=== PATIENT | female | born 1965 | race Caucasian/White ===

== ENCOUNTER → 2018-04-18 | Outpatient (CLI) | payer OTHER | LOC: M RAD 14:54 | DX: M51.36 Other intervertebral disc degeneration, lumbar region (principal) | CPT/HCPCS: 72110 ==

== ENCOUNTER → 2019-02-02 | Outpatient (REF) | payer OTHER, MEDICAID ==
[2019-02-02 13:24] LABS: AMORPHOUS SEDIMENT MODERATE (NEGATIVE); APPEARANCE, URINE TURBID (CLEAR); BACTERIA, URINE AUTO NEGATIVE (NEGATIVE); BILIRUBIN, URINE AUTO NEGATIVE (NEGATIVE); BLOOD, URINE BLOOD NEGATIVE (NEGATIVE); COLOR, URINE YELLOW (YELLOW); GLUCOSE, URINE (UA) AUTO NEGATIVE (NEGATIVE); KETONE, URINE AUTO NEGATIVE (NEGATIVE); LEUKOCYTE ESTERASE, URINE AUTO 2+ (NEGATIVE); NITRITE, URINE AUTO NEGATIVE (NEGATIVE); PROTEIN, URINE AUTO NEGATIVE (NEGATIVE); RBC, URINE AUTO 0 /HPF (0-3); SPECIFIC GRAVITY URINE AUTO 1.027 (1.002-1.035); SQUAMOUS EPITHELIAL CELL UR AU 0 /HPF (0-6); UROBILINOGEN, URINE AUTO 0.2 mg/dL (0.0-2.0); WBC, URINE AUTO 0 /HPF (0-3)
[2019-02-02 13:36] LABS: BASO # 0.1 10^3/uL (0.0-0.2); BASO % 1.4 % (0.0-1.0); EOS # 0.1 10^3/uL (0.0-0.50); EOS % 2.4 % (0.0-3.0); HEMATOCRIT 39.4 % (36.0-47.0); LYMPH # 1.5 10^3/uL (1.5-4.5); LYMPH % 30.4 % (24.0-44.0); MEAN CORPUSCULAR HEMOGLOBIN 28.6 pg (27.0-33.0); MEAN CORPUSCULAR VOLUME 86.6 fl (80.0-96.0); MONO # 0.4 10^3/uL (0.0-0.8); MONO % 8.5 % (0.0-5.0); NEUTROPHILS # 2.8 10^3/uL (1.8-7.7); NEUTROPHILS % 57.1 % (36.0-66.0); PLATELET COUNT, AUTOMATED 352 10^3/uL (150-450); RED BLOOD COUNT 4.55 10^6/uL (4.00-5.40); WHITE BLOOD COUNT 4.9 10^3/uL (4.0-10.0)
[2019-02-02 13:44] LABS: ALBUMIN 3.5 GM/DL (3.2-5.2); ALT/SGPT 15 U/L (12-78); BILIRUBIN,TOTAL 0.6 MG/DL (0.2-1.0); BLOOD UREA NITROGEN 25 MG/DL (7-18); CALCIUM LEVEL 9.2 MG/DL (8.5-10.1); CARBON DIOXIDE LEVEL 26 MEQ/L (21-32); CHLORIDE LEVEL 110 MEQ/L (98-107); CHOLESTEROL LEVEL 188 MG/DL (<200); CHOLESTEROL RISK RATIO 4.585 (<5); FREE T4 0.77 NG/DL (0.76-1.46); GLOMERULAR FILTRATION RATE > 60.0 (>51); GLUCOSE, FASTING 87 MG/DL (70-100); HDL CHOLESTEROL 41 MG/DL (>40); LDL CHOLESTEROL 107 MG/DL (<100); NON-HDL-C 147 MG/DL; POTASSIUM SERUM 4.4 MEQ/L (3.5-5.1); SODIUM LEVEL 142 MEQ/L (136-145); TOTAL PROTEIN 6.8 GM/DL (6.4-8.2); TRIGLYCERIDES LEVEL 202 MG/DL (<150)
[2019-02-04 00:08] LABS: Lyme Disease IgG/IgM Antibodie <0.91 ISR (0.00-0.90); Lyme Disease IgM Ab Quantitati <0.80 index (0.00-0.79)
== END ==
LOC: M LAB REF 13:00
PROVIDERS: ATTEND Family Medicine
DX: Z13.228 Encounter for screening for other metabolic disorders (principal)

== ENCOUNTER → 2019-12-04 | Outpatient (REF) | payer OTHER, MEDICAID ==
[2019-12-04 17:57] LABS: APPEARANCE, URINE CLEAR (CLEAR); BACTERIA, URINE AUTO NEGATIVE (NEGATIVE); BILIRUBIN, URINE AUTO NEGATIVE (NEGATIVE); BLOOD, URINE BLOOD 1+ (NEGATIVE); COLOR, URINE YELLOW (YELLOW); GLUCOSE, URINE (UA) AUTO NEGATIVE (NEGATIVE); KETONE, URINE AUTO NEGATIVE (NEGATIVE); LEUKOCYTE ESTERASE, URINE AUTO NEGATIVE (NEGATIVE); NITRITE, URINE AUTO NEGATIVE (NEGATIVE); PROTEIN, URINE AUTO NEGATIVE (NEGATIVE); RBC, URINE AUTO 1 /HPF (0-3); SPECIFIC GRAVITY URINE AUTO 1.013 (1.002-1.035); SQUAMOUS EPITHELIAL CELL UR AU 1 /HPF (0-6); UROBILINOGEN, URINE AUTO 0.2 mg/dL (0.0-2.0); WBC, URINE AUTO 2 /HPF (0-3)
== END ==
LOC: M LAB REF 16:15
PROVIDERS: ATTEND Nurse Practitioner Family
DX: R30.0 Dysuria (principal)

== ENCOUNTER → 2019-12-14 | Outpatient (REF) | payer OTHER, MEDICAID ==
[2019-12-14 17:40] LABS: BASO # 0.1 10^3/uL (0.0-0.2); BASO % 1.3 % (0.0-1.0); EOS # 0.2 10^3/uL (0.0-0.5); EOS % 2.3 % (0.0-3.0); HEMATOCRIT 39.9 % (36.0-47.0); HEMOGLOBIN 13.3 g/dl (12.0-15.5); LYMPH # 2.4 10^3/uL (1.5-5.0); LYMPH % 35.1 % (24.0-44.0); MEAN CORPUSCULAR HEMOGLOBIN 29.4 pg (27.0-33.0); MEAN CORPUSCULAR HGB CONC 33.3 g/dl (32.0-36.5); MEAN CORPUSCULAR VOLUME 88.3 fl (80.0-96.0); MONO # 0.5 10^3/uL (0.0-0.8); MONO % 7.8 % (0.0-5.0); NEUTROPHILS # 3.3 10^3/uL (1.5-8.5); NEUTROPHILS % 48.8 % (36.0-66.0); PLATELET COUNT, AUTOMATED 335 10^3/uL (150-450); RED BLOOD COUNT 4.52 10^6/uL (4.00-5.40); WHITE BLOOD COUNT 6.8 10^3/uL (4.0-10.0)
[2019-12-14 17:48] LABS: ALBUMIN 3.6 GM/DL (3.2-5.2); ALT/SGPT 21 U/L (12-78); BILIRUBIN,TOTAL 0.5 MG/DL (0.2-1.0); BLOOD UREA NITROGEN 14 MG/DL (7-18); CALCIUM LEVEL 9.3 MG/DL (8.5-10.1); CARBON DIOXIDE LEVEL 30 MEQ/L (21-32); CHLORIDE LEVEL 108 MEQ/L (98-107); CHOLESTEROL LEVEL 205 MG/DL (<200); CHOLESTEROL RISK RATIO 5.694 (<5); CREATININE FOR GFR 1.02 MG/DL (0.55-1.30); FREE T4 0.68 NG/DL (0.76-1.46); GLOMERULAR FILTRATION RATE > 60.0 (>51); GLUCOSE, FASTING 102 MG/DL (70-100); HDL CHOLESTEROL 36 MG/DL (>40); LDL CHOLESTEROL 128 MG/DL (<100); NON-HDL-C 169 MG/DL; POTASSIUM SERUM 4.3 MEQ/L (3.5-5.1); SODIUM LEVEL 140 MEQ/L (136-145); TOTAL PROTEIN 6.9 GM/DL (6.4-8.2); TRIGLYCERIDES LEVEL 205 MG/DL (<150)
[2019-12-14 17:49] LABS: TOTAL 25(OH) VITAMIN D 16.9 NG/ML (30.0-100.0)
== END ==
LOC: M LAB REF 16:10
PROVIDERS: ATTEND Nurse Practitioner Family
DX: R30.0 Dysuria (principal); R03.0 Elevated blood-pressure reading, without diagnosis of hypertension; E66.9 Obesity, unspecified; E55.9 Vitamin D deficiency, unspecified; E03.1 Congenital hypothyroidism without goiter

== ENCOUNTER 2020-08-25 00:35 | Inpatient (IN) | payer MEDICAID, OTHER ==
[~2020-08-25] VITALS: Ht 157.5 cm; Wt 70.5 kg
[2020-08-25 01:38] LABS: HEMATOCRIT 39.6 % (36.0-47.0); HEMOGLOBIN 13.3 g/dl (12.0-15.5); MEAN CORPUSCULAR HEMOGLOBIN 29.2 pg (27.0-33.0); MEAN CORPUSCULAR HGB CONC 33.6 g/dl (32.0-36.5); MEAN CORPUSCULAR VOLUME 86.8 fl (80.0-96.0); PLATELET COUNT, AUTOMATED 208 10^3/uL (150-450); RED BLOOD COUNT 4.56 10^6/uL (4.00-5.40); WHITE BLOOD COUNT 9.1 10^3/uL (4.0-10.0)
[2020-08-25 01:58] LABS: AMPHETAMINES LEVEL URINE NEGATIVE (NEGATIVE); BARBITURATES URINE NEGATIVE (NEGATIVE); BENZODIAZEPINES URINE NEGATIVE (NEGATIVE); CANNABINOIDS URINE POSITIVE (NEGATIVE); COCAINE METABOLITE URINE NEGATIVE (NEGATIVE); METHADONE URINE NEGATIVE (NEGATIVE); OPIATES URINE NEGATIVE (NEGATIVE); PHENCYCLIDINE URINE NEGATIVE (NEGATIVE)
[2020-08-25 02:09] LABS: ACETAMINOPHEN LEVEL < 2.0 UG/ML (10.0-30.0); ALBUMIN 4.2 GM/DL (3.2-5.2); ALT/SGPT 19 U/L (12-78); BILIRUBIN,DIRECT 0.2 MG/DL (0.0-0.2); BILIRUBIN,TOTAL 0.7 MG/DL (0.2-1.0); BLOOD UREA NITROGEN 18 MG/DL (7-18); CALCIUM LEVEL 9.2 MG/DL (8.5-10.1); CARBON DIOXIDE LEVEL 27 MEQ/L (21-32); CHLORIDE LEVEL 109 MEQ/L (98-107); CREATININE FOR GFR 1.01 MG/DL (0.55-1.30); ETHYL ALCOHOL (ETHANOL) 0.003 % (0.000-0.010); GLOMERULAR FILTRATION RATE > 60.0 (>51); GLUCOSE, FASTING 97 MG/DL (70-100); POTASSIUM SERUM 3.5 MEQ/L (3.5-5.1); SALICYLATE LEVEL < 1.7 MG/DL (5.0-30.0); SODIUM LEVEL 141 MEQ/L (136-145); TOTAL PROTEIN 7.4 GM/DL (6.4-8.2)
[2020-08-25] MEDS ORDERED: MULT1CHW29 PO (02:31)
[2020-08-25 02:53] LABS: FREE T4 0.91 NG/DL (0.76-1.46)
[2020-08-25 04:23] LABS: RSV AMPLIFICATION NEGATIVE (NEGATIVE)
[2020-08-25] MEDS ORDERED: MOM 30ML SUSPENSION UDC PO PRN (04:45)
[2020-08-25] MEDS ORDERED: traZODone 50 MG TAB PO PRN (04:45)
[2020-08-25] MEDS ORDERED: MAALOX 30 ML SUSP *UDC PO PRN (04:45)
[2020-08-25] MEDS ORDERED: LORazepam 2 MG TAB PO PRN (04:45)
[2020-08-25] MEDS ORDERED: ACETAMINOPHEN TAB 650MG DOSE (2X325MG) PO PRN (04:45)
[2020-08-25 05:05] VITALS: BP 168/96
[2020-08-25 05:09] VITALS: BP 179/113
[2020-08-25] MEDS ORDERED: LORazepam 0.5 MG TAB PO ONE (06:00)
[2020-08-25 06:11] VITALS: BP 168/96
[2020-08-25] MEDS: MULTIVITAMINS/MINERALS THERAP 1 TAB PO SCH (09:51)
[2020-08-25] MEDS: THIAMINE 100 MG TAB PO SCH ×2 (09:51→21:16)
[2020-08-25] MEDS: FOLIC ACID 1 MG TAB PO SCH (09:51)
--- NOTE | 2020-08-25 10:38 | MHHPEPDOC ---
General Date Of Admission: Aug 25, 2020 Legal Status: 9.39 Chief Complaint "I said some stupid things. History of Present Illness HISTORY OF THE PRESENT ILLNESS: Patient is a 55 -year-old , female, who presented to [facility] after yelling that she would kill herself and ran out of her house, she reportedly had had a razor and had been using various substances. Collateral was called in the ER where it was not not ideal and she was admitted to caution. Patient was fairly guarded during the interview and denied all psychiatric symptoms and denied having want to harm herself. The patient generally didn't engage much and appeared quite dysthymic and depressed.. Psychiatric Review of Systems Depression (2 or more weeks): denies Niecy (4 or more days of): denies Psychosis: denies PTSD: denies Anxiety: denies Past Psychiatric History Previous Psychiatric Diagnosis: Anxiety. Previous Psychiatric Admissions: Denies. Suicide Attempts: Denies. Psychiatric Follow-up: Denies. Psychiatric medications: Distant history of Xanax prescription. Past Medical History Medical Problems None significant Family Medical/Psychiatric HX Psychiatric Disorders: No Addiction: No Suicide Attemps/Completions: No Addiction History ecstasy Social History Abuse/Trauma: Denies. Current Living Situation: Lives with . Education: High school. Social Support: primarily. Marital: . Mental Status Examination General Appearance: well groomed Build: thin Demeanor: guarded Eye Contact: avoidant Activity: average Behavior: resistant Speech: clear Mood: depressed Affect: constricted Thought Process: logical/linear Thought Content (Delusions): none reported, denies SI, HI, AVH Thought Content (Aggressive): none reported Perception (Hallucinations): none reported Perception (Other): none reported Cognition (Impairment of): none reported Cognition(Intelligence Est.): average Oriented: Oriented times three Insight: poor Judgment: Poor Psychosis: Denies Assessment 55-year-old woman with a history of anxiety presents after using various substances, it's unclear but it appears that this suicidal gesture, observation will likely undertaken in order to assure safety Problem List Problems: (1) Hallucinogen use with hallucinogen-induced disorder Status: Acute Problem Text: Monitor, placed on alcohol withdrawal protocol out of violence caution patient does use quite a number of substances (2) Anxiety Status: Chronic Response to Treatment: Uncontrolled Problem Text: Need to observe once patient is detoxed from hallucinogen Initial Treatment Plan 1. Patient was admitted on a [9.39] status. 2. Complete history was obtained. 3. With patients permission, family will be contacted and database will be expanded. 4. Patients medication regimen will be reviewed and changed accordingly. 5. Patient will be provided with protected environment. 6. Patient will be treated with individual, group, and milieu therapies. 7. Patient will receive supportive psych-education. 8. Discharge planning will commence immediately. 9. Outpatient follow-up treatment will be strongly recommended. 10. The initial treatment plan will focus initially on: * Substance use * Risk for suicide. ESTIMATED LENGTH OF STAY: 2-4 DAYS. TIME SPENT COUNSELING AND COORDINATING INITIAL CARE: 30 minutes. Vital Signs Vital Signs Date Time Temp Pulse Resp B/P (MAP) Pulse Ox O2 Delivery O2 Flow Rate FiO2 08/25/20 06:11 98.9 69 18 168/96 (120) 100 Room Air Laboratory Data 24H Labs Laboratory Tests 2 08/25/20 01:20: Nucleated Red Blood Cells % (auto) 0.0, Anion Gap 5L, Glomerular Filtration Rate > 60.0, Calcium Level 9.2, Total Bilirubin 0.7, Direct Bilirubin 0.2, Aspartate Amino Transf (AST/SGOT) 10, Alanine Aminotransferase (ALT/SGPT) 19, Alkaline Phosphatase 85, Total Protein 7.4, Albumin 4.2, Albumin/Globulin Ratio 1.3, Thyroid Stimulating Hormone (TSH) 18.500H, Free Thyroxine 0.91, Salicylates Level < 1.7L, Urine Opiates Screen NEGATIVE, Urine Methadone Screen NEGATIVE, Acetaminophen Level < 2.0L, Urine Barbiturates Screen NEGATIVE, Urine Phencycli dine Screen NEGATIVE, Urine Amphetamines Screen NEGATIVE, Urine Benzodiazepines Screen NEGATIVE, Urine Cocaine Metabolite Screen NEGATIVE, Urine Cannabinoids Screen POSITIVEH, Ethyl Alcohol Level 0.003 08/25/20 03:16: Coronavirus (COVID-19)(PCR) NEGATIVE, Influenza Type A (RT-PCR) NEGATIVE, Influenza Type B (RT-PCR) NEGATIVE, Respiratory Syncytial Virus (PCR) NEGATIVE CBC/BMP Laboratory Tests 08/25/20 01:20 Medications Scheduled Multivit-Minerals/Folic Acid (Women's Multivitamin Gummies) 200 Mcg Tab.chew, 2 CHW PO DAILY, (Reported) Allergies Coded Allergies: No Known Allergies (Unverified , 08/25/20) BARBARA AYOUB DO Aug 25, 2020 10:38
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
[2020-08-25 14:00] VITALS: BP 150/100
[2020-08-25 16:54] VITALS: BP 150/100
[2020-08-25 22:00] VITALS: BP 148/94
[2020-08-26 06:17] VITALS: BP 150/79
[2020-08-26] MEDS: THIAMINE 100 MG TAB PO SCH ×2 (08:55→20:27)
[2020-08-26] MEDS: MULTIVITAMINS/MINERALS THERAP 1 TAB PO SCH (08:55)
[2020-08-26] MEDS: FOLIC ACID 1 MG TAB PO SCH (08:55)
[2020-08-26] MEDS: ESCITALOPRAM OXALATE 5MG TABLET (LEXAPRO) PO SCH (12:29)
[2020-08-26 16:56] VITALS: BP 140/91
[2020-08-26 19:30] VITALS: BP 140/91
[2020-08-27 06:32] VITALS: BP 142/83
[2020-08-27] MEDS: ESCITALOPRAM OXALATE 5MG TABLET (LEXAPRO) PO SCH (08:37)
--- NOTE | 2020-08-27 09:54 | MHIPN ---
[facility] PROGRESS NOTE DATE: 08/26/2020 VITAL SIGNS: Blood pressure 150/79, pulse 72, temperature is 97.3. CHIEF COMPLAINT: Feels stressed. SUBJECTIVE: Seen for follow-up. Feels stressed. She says she wishes she was not here in the hospital. She says she has generally been stressed, finds it hard to relax, this has been going on for several years, says worries about bills and other stresses, but has a hard time relaxing even when things are going well. Spoke of a difficult relationship with her , they have been together for 30 years, a year and a half or so ago for a few months, got back together, she says she has difficulties with his temper, per the patient she says he has been diagnosed with intermittent explosive disorder, is not in treatment at the moment, says treatment for him has not helped in the past, this also leads to her being stressed around him, although she says they tend to remain together. Sleep is difficult regularly, uses marijuana at night to help with that, and has been doing so. Says had taken the "Anu" which says was a "rock salt" that she snorted, the other day, says it was quite out of character for her, does not intend to do that again. Denies using any other hallucinogens in the past. Says has used Xanax and Ambien to help with anxiety and sleep a few years ago, through primary care. MENTAL STATUS EXAM: She is neat, she is cooperative, no agitation. No psychomotor retardation, mildly tearful at times. Affect is restrictive but reactive. Denies any suicidal thoughts or intents. No homicidal ideations or intents. No evidence of any psychosis. Cognition is grossly intact. Judgment and insight are improved but compromised. ASSESSMENT: Other specified anxiety disorder. Rule out generalized anxiety disorder. Has chronic anxiety, may well meet criteria for generalized anxiety, stressful relationship, have been together for several decades, he has difficulties with his emotions, which in turn impact her. Uses cannabis regularly, unclear if she misuses it. Suggests has used the hallucinogen, which may well be a methamphetamine, or a type of amphetamine, only on that occasion. PLAN: After discussion of the risks, benefits, drawbacks, side-effects and alternatives, she understands, she agrees to start Lexapro at 5 mg daily, to help with symptoms of anxiety, which have been significant. She has also indicated a possible psychiatric family history, on her mother's side. Encouraged to participate in activities on the unit. I would suggest obtaining collateral information from , and addressing, or beginning to, some of the stressors that they have, before she is discharged. I would also suggest that she see a therapist and psychiatrist upon discharge, and that she and her consider couples counseling. Further recommendations will be made depending on the clinical picture. We met for 20 minutes.
--- NOTE | 2020-08-27 12:23 | IPN ---
PROGRESS NOTE DATE: 08/25/2020 CHIEF COMPLAINT: Feels better. SUBJECTIVE: Seen for followup. Indicates has been feeling a bit better. Says spoke with her . That went well but did not talk much about the future. Says plans to do so when she is home. Says did not sleep. Suggested that is her usual pattern and also that she did not take the trazodone which was offered, as she does not like taking medicines. So far no trouble taking the Lexapro. First dose was given yesterday, 5 mg. MENTAL STATUS EXAMINATION: Neat, cooperative. No agitation. No psychomotor retardation. Coherent. Affect reactive. No evidence of any overt thoughts of harming herself. Cognition grossly intact. Judgment and insight a bit compromised but possibly improved. ASSESSMENT: 1. Other specified anxiety disorder. 2. Rule out generalized anxiety disorder. Feels a bit more confident. Difficulties in her marriage remain as a factor. It is preferable that that is begun to be addressed while she is here. PLAN: Continue Lexapro 5 mg daily. She has tolerated it well so far. Would suggest looking at titrating it as indicated. Also consider discussing, in the presence of staff, matters related to the concerns of the marriage. It is preferably done before she is discharged. I would anticipate discharge in the next 48 hours or so with current progress and would recommend that she be followed up as an outpatient. Will be referred for outpatient therapy, psychiatry, upon discharge. Further recommendations will be made depending on the clinical picture.
[2020-08-27 16:57] VITALS: BP 135/88
[2020-08-28 06:34] VITALS: BP 144/90
[2020-08-28] MEDS: ESCITALOPRAM OXALATE 5MG TABLET (LEXAPRO) PO SCH (09:42)
[2020-08-28 14:55] VITALS: BP 160/86
--- NOTE | 2020-08-28 19:39 | MHIPN ---
[facility] PROGRESS NOTE DATE: 08/28/2020 VITAL SIGNS: Blood pressure 160/86, pulse 63, temperature 98.5. CHIEF COMPLAINT: Says feels better. SUBJECTIVE: Seen for followup, and this is in the presence of staff. Indicates has been feeling better, and that she slept well, did not take any trazodone, does not think she needs it. Says moods are better. She has spoken with her , and that has gone well. Says has plans to bring up matters related to their relationship once she gets home. MENTAL STATUS EXAMINATION: Neat, cooperative, no agitation, no psychomotor retardation, she is coherent. Affect is reactive, fairly broad. No evidence of any thoughts of harming herself or anyone else, nor of any psychosis. Cognition grossly intact. Judgment and insight improved. ASSESSMENT: Other specified anxiety disorder. Rule out generalized anxiety disorder. Feels better, more confident. PLAN: Continue Lexapro 5 mg daily. Continue encouraging participation in activities, and she will be seeing the assigned clinician tomorrow. I would anticipate a discharge soon, with followup.
[2020-08-29 07:01] VITALS: BP 148/98
[2020-08-29] MEDS ORDERED: LEXA5TAB13 PO (09:15)
[2020-08-29] MEDS: ESCITALOPRAM OXALATE 5MG TABLET (LEXAPRO) PO SCH (09:26)
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
== END 2020-08-29 12:15 | disposition home or self-care (01) | DRG 776 ==
LOC: M ED 00:35 → M ED INP 04:35 → M PSY 04:56
PROVIDERS: ADMIT Psychiatry & Neurology Addiction Medicine; ATTEND Psychiatry & Neurology Psychiatry
DX: F16.180 Hallucinogen abuse with hallucinogen-induced anxiety disorder (principal); F41.8 Other specified anxiety disorders; Z63.0 Problems in relationship with spouse or partner

== ENCOUNTER → 2020-12-19 | Outpatient (REF) | payer OTHER ==
[~2020-12-19] MED LIST: LEXA5TAB13 PO; MULT1CHW29 PO
[2020-12-20 12:49] LABS: BASO # 0.1 10^3/uL (0.0-0.2); BASO % 1.8 % (0.0-1.0); EOS # 0.1 10^3/uL (0.0-0.5); EOS % 2.1 % (0.0-3.0); HEMATOCRIT 39.4 % (36.0-47.0); HEMOGLOBIN 12.7 g/dl (12.0-15.5); LYMPH # 1.7 10^3/uL (1.5-5.0); LYMPH % 30.1 % (24.0-44.0); MEAN CORPUSCULAR HGB CONC 32.2 g/dl (32.0-36.5); MONO # 0.4 10^3/uL (0.0-0.8); MONO % 7.3 % (2.0-8.0); NEUTROPHILS # 3.3 10^3/uL (1.5-8.5); PLATELET COUNT, AUTOMATED 346 10^3/uL (150-450); RED BLOOD COUNT 4.38 10^6/uL (4.00-5.40); WHITE BLOOD COUNT 5.6 10^3/uL (4.0-10.0)
[2020-12-20 13:23] LABS: ALBUMIN 3.7 GM/DL (3.2-5.2); ALT/SGPT 15 U/L (12-78); BILIRUBIN,TOTAL 0.5 MG/DL (0.2-1.0); BLOOD UREA NITROGEN 15 MG/DL (7-18); CALCIUM LEVEL 9.4 MG/DL (8.5-10.1); CARBON DIOXIDE LEVEL 30 MEQ/L (21-32); CHLORIDE LEVEL 109 MEQ/L (98-107); CHOLESTEROL LEVEL 191 MG/DL (<200); CHOLESTEROL RISK RATIO 4.547 (<5); CREATININE FOR GFR 0.76 MG/DL (0.55-1.30); FREE T4 0.74 NG/DL (0.76-1.46); GLOMERULAR FILTRATION RATE > 60.0 (>51); GLUCOSE, FASTING 92 MG/DL (70-100); HDL CHOLESTEROL 42 MG/DL (>40); LDL CHOLESTEROL 107 MG/DL (<100); NON-HDL-C 149 MG/DL; POTASSIUM SERUM 4.9 MEQ/L (3.5-5.1); SODIUM LEVEL 142 MEQ/L (136-145); TOTAL PROTEIN 6.5 GM/DL (6.4-8.2); TRIGLYCERIDES LEVEL 208 MG/DL (<150)
[2020-12-20 14:24] LABS: HEMOGLOBIN A1c 5.4 %
== END ==
LOC: M SFHCCLAY 15:51
PROVIDERS: ATTEND Nurse Practitioner Family
DX: I10 Essential (primary) hypertension (principal); Z13.1 Encounter for screening for diabetes mellitus

== ENCOUNTER → 2022-06-21 | Outpatient (CLI) | payer OTHER | LOC: M CLY 08:53 | PROVIDERS: ATTEND Nurse Practitioner Family | DX: R05.9 Cough, unspecified (principal) ==

== ENCOUNTER → 2022-06-21 | Outpatient (REF) | payer OTHER ==
[2022-06-21 11:49] LABS: BASO # 0.1 10^3/uL (0.0-0.2); BASO % 1.7 % (0.0-1.0); EOS # 0.3 10^3/uL (0.0-0.5); EOS % 3.9 % (0.0-3.0); HEMATOCRIT 39.9 % (36.0-47.0); HEMOGLOBIN 12.9 g/dl (12.0-15.5); LYMPH # 2.4 10^3/uL (1.5-5.0); LYMPH % 36.1 % (24.0-44.0); MEAN CORPUSCULAR HEMOGLOBIN 28.9 pg (27.0-33.0); MEAN CORPUSCULAR HGB CONC 32.3 g/dl (32.0-36.5); MEAN CORPUSCULAR VOLUME 89.5 fl (80.0-96.0); MONO # 0.5 10^3/uL (0.0-0.8); MONO % 7.2 % (2.0-8.0); NEUTROPHILS # 3.4 10^3/uL (1.5-8.5); NEUTROPHILS % 50.9 % (36.0-66.0); PLATELET COUNT, AUTOMATED 327 10^3/uL (150-450); RED BLOOD COUNT 4.46 10^6/uL (4.00-5.40); WHITE BLOOD COUNT 6.6 10^3/uL (4.0-10.0)
[2022-06-21 12:16] LABS: HEMOGLOBIN A1c 5.6 %
[2022-06-21 12:29] LABS: ALBUMIN 3.7 GM/DL (3.2-5.2); ALT/SGPT 16 U/L (12-78); BILIRUBIN,TOTAL 0.4 MG/DL (0.2-1.0); BLOOD UREA NITROGEN 22 MG/DL (7-18); CALCIUM LEVEL 9.2 MG/DL (8.5-10.1); CARBON DIOXIDE LEVEL 30 MEQ/L (21-32); CHLORIDE LEVEL 106 MEQ/L (98-107); CHOLESTEROL LEVEL 189 MG/DL (<200); CHOLESTEROL RISK RATIO 3.436 (<5); CREATININE FOR GFR 0.94 MG/DL (0.55-1.30); FREE T4 0.58 NG/DL (0.76-1.46); GLOMERULAR FILTRATION RATE > 60.0 (>51); GLUCOSE, FASTING 91 MG/DL (70-100); HDL CHOLESTEROL 55 MG/DL (>40); LDL CHOLESTEROL 91 MG/DL (<100); NON-HDL-C 134 MG/DL; POTASSIUM SERUM 4.1 MEQ/L (3.5-5.1); SODIUM LEVEL 140 MEQ/L (136-145); TOTAL PROTEIN 6.9 GM/DL (6.4-8.2); TRIGLYCERIDES LEVEL 216 MG/DL (<150)
== END ==
LOC: M SFHCCLAY 08:34
PROVIDERS: ATTEND Nurse Practitioner Family
DX: I10 Essential (primary) hypertension (principal); Z13.1 Encounter for screening for diabetes mellitus

== ENCOUNTER → 2022-07-02 | Outpatient (REF) | payer OTHER ==
[2022-07-02 19:08] LABS: ALBUMIN 3.8 GM/DL (3.2-5.2); ALT/SGPT 22 U/L (12-78); BILIRUBIN,TOTAL 0.4 MG/DL (0.2-1.0); BLOOD UREA NITROGEN 23 MG/DL (7-18); CALCIUM LEVEL 9.2 MG/DL (8.5-10.1); CARBON DIOXIDE LEVEL 29 MEQ/L (21-32); CHLORIDE LEVEL 106 MEQ/L (98-107); CREATININE FOR GFR 1.01 MG/DL (0.55-1.30); GLOMERULAR FILTRATION RATE > 60.0 (>51); GLUCOSE, FASTING 99 MG/DL (70-100); POTASSIUM SERUM 4.2 MEQ/L (3.5-5.1); SODIUM LEVEL 138 MEQ/L (136-145); TOTAL PROTEIN 6.9 GM/DL (6.4-8.2)
[2022-07-02 20:10] LABS: THYROGLOBULIN ANTIBODY 279.8 U/ML (<60.0); THYROID PEROXIDASE ANTIBODY > 1300.0 U/ML (<60.0)
== END ==
LOC: M SFHCCLAY 10:49
PROVIDERS: ATTEND Nurse Practitioner Family
DX: E03.9 Hypothyroidism, unspecified (principal)

== ENCOUNTER 2022-07-14 12:50 | Emergency (ER) | payer OTHER ==
[~2022-07-14] VITALS: Ht 157.5 cm; Wt 55.0 kg
[2022-07-14] MEDS ORDERED: FLUORESCEIN OPHTH 1 MG STRIP OS ONE (13:25)
[2022-07-14] MEDS ORDERED: PROPARACAINE 0.5% OPHTH SOL 15ML OS ONE (13:25)
[2022-07-14] MEDS ORDERED: prednisoLONE ACET 1% OPHTH SUSP 5ML OS ONE (14:40)
[2022-07-14] MEDS ORDERED: CARB15DR33 OP (14:44)
[2022-07-14] MEDS ORDERED: PRED1SUS30 OS (14:44)
[2022-07-14 15:02] VITALS: BP 155/78
== END 2022-07-14 15:02 | disposition home or self-care (01) ==
LOC: M ED 12:50
DX: H15.002 Unspecified scleritis, left eye (principal); I10 Essential (primary) hypertension; F41.9 Anxiety disorder, unspecified; Z79.899 Other long term (current) drug therapy

== ENCOUNTER 2023-05-21 21:28 | Emergency (ER) | payer OTHER ==
[~2023-05-21] VITALS: Ht 157.5 cm; Wt 49.4 kg
[~2023-05-21 21:28] MED LIST changes: +CARB15DR33 OP; +PRED1SUS30 OS
[2023-05-21 21:36] VITALS: BP 146/88; TEMP 98.7; O2SAT 99
== END 2023-05-21 23:55 | disposition left against medical advice (07) ==
LOC: M ED 21:28
DX: Z53.21 Procedure and treatment not carried out due to patient leaving prior to being seen by health care provider (principal)

== ENCOUNTER 2023-07-08 16:36 | Emergency (ER) | payer OTHER ==
[~2023-07-08] VITALS: Ht 160 cm; Wt 54.5 kg
[2023-07-08 16:37] VITALS: BP 129/81; TEMP 96; O2SAT 98
== END 2023-07-08 16:50 | disposition left against medical advice (07) ==
LOC: M ED 16:36
DX: Z53.21 Procedure and treatment not carried out due to patient leaving prior to being seen by health care provider (principal)

== ENCOUNTER 2024-07-21 07:40 | Emergency (ER) | payer OTHER, SELFPAY ==
[~2024-07-21] VITALS: Ht 157.5 cm; Wt 61.5 kg
[2024-07-21] MEDS ORDERED: METAL LOCK LOOP XX ONE (08:18)
[2024-07-21 10:58] VITALS: BP 144/82; TEMP 98.6; O2SAT 98
== END 2024-07-21 11:19 | disposition home or self-care (01) ==
LOC: M ED 07:40 → EDBD 07:40 → M ED 11:19
DX: S00.83XA Contusion of other part of head, initial encounter (principal); S60.222A Contusion of left hand, initial encounter; Y04.0XXA Assault by unarmed brawl or fight, initial encounter; Y92.481 Parking lot as the place of occurrence of the external cause; Y93.9 Activity, unspecified; Y99.9 Unspecified external cause status; I10 Essential (primary) hypertension; F41.9 Anxiety disorder, unspecified; F17.210 Nicotine dependence, cigarettes, uncomplicated